=== PATIENT | female | born 1995 | race African-American/Black ===

== ENCOUNTER 2016-07-06 17:20 | Emergency (ER) | payer OTHER ==
--- NOTE | 2016-07-06 19:46 | UC ---
[facility] HPI - HPI Summary HPI Summary: 21 yo female with tooth ache x 2-3 days has been flossing a lot no f/c - History of Current Complaint Chief Complaint: UCGeneralIllness Stated Complaint: ORAL/LUMP RIGHT SIDE OF GUM Time Seen by Provider: 07/06/16 19:35 Hx Obtained From: Patient Hx Last Menstrual Period: 06/26/16 Onset/Duration: Sudden Onset, Lasting Days Severity: Moderate Pain Intensity: 4 Pain Scale Used: 0-10 Numeric Aggravating: Heat, Cold, Chewing Alleviating: Nothing - Allergies/Home Medications Allergies/Adverse Reactions: Allergies Allergy/AdvReac Type Severity Reaction Status Date / Time No Known Allergies Allergy Verified 07/06/16 19:44 PMH/Surg Hx/FS Hx/Imm Hx Previously Healthy: Yes Endocrine History Of: Denies: Diabetes, Thyroid Disease Respiratory History Of: Denies: COPD, Asthma, Bronchitis, Pneumonia, Pulmonary Embolism - Surgical History Surgical History: None - Family History Known Family History: Positive: Cardiac Disease, Hypertension, Diabetes - Social History Alcohol Use: Weekly Alcohol Amount: 2 times a week Substance Use Type: None Smoking Status (MU): Never Smoked Tobacco - Immunization History Most Recent Influenza Vaccination: none Review of Systems Constitutional: Negative Skin: Negative Eyes: Negative ENT: Dental Pain Respiratory: Negative Cardiovascular: Negative Gastrointestinal: Negative Genitourinary: Negative Motor: Negative Neurovascular: Negative Musculoskeletal: Negative Neurological: Negative Psychological: Negative All Other Systems Reviewed And Are Negative: Yes Physical Exam Triage Information Reviewed: Yes Appearance: Well-Appearing, No Pain Distress, Well-Nourished Vital Signs: Initial Vital Signs Temp 98.0 F 07/06/16 19:38 Pulse 91 07/06/16 19:38 Resp 16 07/06/16 19:38 BP 111/61 07/06/16 19:38 Pulse Ox 99 07/06/16 19:38 Vital Signs Reviewed: Yes Eyes: Positive: Conjunctiva Clear ENT: Positive: Normal ENT inspection, Hearing grossly normal, Pharynx normal, TMs normal. Negative: Nasal congestion, Nasal drainage, Tonsillar exudate, Trismus, Muffled/hoarse voice Dental: Positive: Other: - see image Neck: Positive: Supple, Nontender, No Lymphadenopathy Respiratory: Positive: Lungs clear, Normal breath sounds Cardiovascular: Positive: RRR, No Murmur. Negative: Tachycardia, Bradycardia Musculoskeletal: Positive: ROM Intact, No Edema Neurological: Positive: Alert Psychological Exam: Normal Skin Exam: Normal Dental Complaint Course/Dx - Differential Dx/Diagnosis Provider Diagnoses: dental abscess Discharge - Discharge Plan Condition: Stable Disposition: HOME Prescriptions: Ibuprofen TAB* [Motrin TAB*] 600 mg PO QID PRN #40 tab PRN Reason: Pain Penicillin VK TAB 500 MG(NF) [Penicillin VK 500 mg Tab(NF)] 500 mg PO QID #28 tab Patient Education Materials: Dental Abscess (ED) Referrals: Non Staff,Doctor [Primary Care Provider] - Additional Instructions: recheck in 2 days if not better see dentist Images Dental: 1 - abscess
[2016-07-06] MEDS ORDERED: Penicillin VK TAB* 250 MG PO ONE (19:49)
[2016-07-06 20:03] VITALS: BP 104/54
== END 2016-07-06 20:03 | disposition home or self-care (01) ==
LOC: UCCORT 17:20
DX: K04.7 Periapical abscess without sinus (principal)
CPT/HCPCS: 99212; A9270-GY; G0463